=== PATIENT | male | born 1955 | race American Indian/Alaskan Native ===

== ENCOUNTER 2018-01-03 23:07 | Emergency (ER) | payer MEDICAID ==
[2018-01-03 23:27] VITALS: RESP 18
--- NOTE | 2018-01-04 01:13 | ED PDOC ---
HPI: General Adult Time Seen by Provider: 01/03/18 23:47 Chief Complaint (Nursing): Dizziness/Lightheaded History Per: Patient History/Exam Limitations: no limitations Onset/Duration Of Symptoms: Days (months) Additional Complaint(s): Hx of HIV, HTN, HLD, chronic pain in his legs presenting with lower back/pelvis pain x months, states that he gets dizzy when he gets the pain. States he's been going from hospital to hospital because he is homeless. States his doctors at [facility] have worked him up for this problem, states its related to his lack of musculature. Patient denies falls, denies injury, denies chest pain, shortness of breath, nausea, vomiting, diarrhea, or any other acute symptoms. Patient is asking for [facility]. Past Medical History Reviewed: Historical Data, Nursing Documentation Vital Signs: Last Vital Signs Temp Pulse 78 01/03/18 23:23 Resp 18 01/03/18 23:23 BP 138/79 01/03/18 23:23 Pulse Ox 99 01/03/18 23:23 - Medical History PMH: HIV, HTN - Family History Family History: States: Unknown Family Hx - Allergies Allergies/Adverse Reactions: Allergies Allergy/AdvReac Type Severity Reaction Status Date / Time Penicillins Allergy RASH Verified 01/03/18 23:22 Review of Systems ROS Statement: Except As Marked, All Systems Reviewed And Found Negative Musculoskeletal: Positive for: Back Pain, Leg Pain Physical Exam - Reviewed Nursing Documentation Reviewed: Yes Vital Signs Reviewed: Yes - Physical Exam Appears: Positive for: Non-toxic, No Acute Distress. Negative for: Well ( Cachectic, appears older than stated age) Head Exam: Positive for: ATRAUMATIC, NORMAL INSPECTION, NORMOCEPHALIC Skin: Positive for: Normal Color, Warm, DRY Eye Exam: Positive for: EOMI, Normal appearance, PERRL ENT: Positive for: Normal ENT Inspection Neck: Positive for: Normal, Painless ROM Cardiovascular/Chest: Positive for: Regular Rate, Rhythm Respiratory: Positive for: CNT, Normal Breath Sounds Gastrointestinal/Abdominal: Positive for: Normal Exam, Soft Back: Positive for: Normal Inspection Extremity: Positive for: Normal ROM Neurologic/Psych: Positive for: Alert, Oriented - ECG O2 Sat by Pulse Oximetry: 99 Pulse Ox Interpretation: Normal Medical Decision Making Medical Decision Making: Patient arrives for resolved dizziness and chronic back pain, however also asking to be discharged to [facility]. Patient does not have acute medical condition at this time, will d/c. Disposition - Clinical Impression Clinical Impression: Dizzy spells - Disposition Referrals: [facility] [Outside] Disposition: Routine/Home Disposition Time: 01:14 Condition: STABLE Instructions: Dizziness, Nonvertigo, (DC)
[2018-01-04 01:19] VITALS: BP 129/77; PULSE 66; TEMP 97.7; O2SAT 97
== END 2018-01-04 05:45 | disposition home or self-care (01) ==
LOC: H.ER 23:07
DX: R42 Dizziness and giddiness (principal); E78.5 Hyperlipidemia, unspecified; G89.29 Other chronic pain; I10 Essential (primary) hypertension; Z59.0 Homelessness; Z88.0 Allergy status to penicillin

== ENCOUNTER 2018-01-04 06:28 | Emergency (ER) | payer MEDICAID ==
[2018-01-04] MEDS ORDERED: Sodium Chloride 0.9% 1,000 ML IV STA (07:41)
[2018-01-04 07:52] VITALS: RESP 19; O2SAT 98
--- NOTE | 2018-01-04 08:23 | ED PDOC ---
HPI: Trauma/Fall - HPI Time Seen by Provider: 01/04/18 07:10 Chief Complaint (Nursing): Back Pain History Per: Patient (this is a 62 yo male with h/o HIV, hypertension and DM who returns to the ER after being discharge within 1-2 hours prior. Patient c/o that he cannot walk long distance before losing his strength. States that he fell onto parked car landing on his left shoulder. Has pain in the area.) Past Medical History Reviewed: Historical Data, Nursing Documentation, Vital Signs Vital Signs: Last Vital Signs Temp 97.8 F 01/04/18 07:03 Pulse 64 01/04/18 07:03 Resp 19 01/04/18 07:51 BP 113/75 01/04/18 07:51 Pulse Ox 98 01/04/18 08:26 - Medical History PMH: HIV, HTN - Family History Family History: States: Unknown Family Hx - Living Arrangements Living Arrangements: Other (undomiciled) - Allergies Allergies/Adverse Reactions: Allergies Allergy/AdvReac Type Severity Reaction Status Date / Time Penicillins Allergy RASH Verified 01/03/18 23:22 Review of Systems ROS Statement: Except As Marked, All Systems Reviewed And Found Negative Constitutional: Negative for: Fever Gastrointestinal: Negative for: Nausea, Vomiting Neurological: Positive for: Dizziness. Negative for: Weakness, Numbness, Incoordination, Change in Speech, Confusion, Seizures, Altered Mental Status, Headache Physical Exam - Reviewed Nursing Documentation Reviewed: Yes Vital Signs Reviewed: Yes - Physical Exam Appears: Positive for: Well, Non-toxic, No Acute Distress Head Exam: Positive for: ATRAUMATIC, NORMAL INSPECTION, NORMOCEPHALIC Skin: Positive for: Normal Color, Warm, DRY Eye Exam: Positive for: Normal appearance, EOMI, PERRL ENT: Positive for: Normal ENT Inspection Neck: Positive for: Normal Cardiovascular/Chest: Positive for: Regular Rate, Rhythm Respiratory: Positive for: CNT, Normal Breath Sounds Gastrointestinal/Abdominal: Positive for: Normal Exam, Soft Back: Positive for: Normal Inspection Extremity: Positive for: Normal ROM, Tenderness (left AC/clavicle) Neurologic/Psych: Positive for: Alert, Oriented - Laboratory Results Result Diagrams: 01/04/18 08:25 01/04/18 08:25 - ECG O2 Sat by Pulse Oximetry: 98 - Radiology X-Ray: Viewed By Ga X-Ray Interpretation: No Acute Disease Disposition - Clinical Impression Clinical Impression: Generalized weakness - Patient ED Disposition Is Patient to be Admitted: No Doctor Will See Patient In The: Office Counseled Patient/Family Regarding: Diagnosis, Need For Followup - Disposition Referrals: [facility] [Outside] [facility] [Outside] [facility] [Outside] Disposition: Routine/Home Disposition Time: 09:00 Condition: STABLE Instructions: Generalized Weakness (DC) Forms: [facility] (Frisian) - POA Present On Arrival: Falls Or Trauma
[2018-01-04 08:49] LABS: MEAN CELL VOLUME 96.7 fl (80.0-94.0); MEAN PLATELET VOLUME 7.2 fl (7.2-11.7)
[2018-01-04 08:53] LABS: BASO % 0.3 % (0.0-2.0); EOS # 0.1 K/uL (0.0-0.7); EOS % 1.7 % (0.0-4.0); HEMOGLOBIN 11.9 g/dL (12.0-18.0); LYMPH # 1.7 K/uL (1.0-4.3); LYMPH % 26.5 % (20.0-40.0); MEAN CORPUSCULAR HEMOGLOBIN 33.2 pg (27.0-31.0); MEAN CORPUSCULAR HGB CONC 34.4 g/dL (33.0-37.0); MONO # 2.1 K/uL (0.0-0.8); MONO % 31.6 % (0.0-10.0); NEUT # 2.6 K/uL (1.8-7.0); NEUT % 39.9 % (50.0-75.0); NRBC % 1.6 % (0.0-0.0); RBC 3.58 Mil/uL (4.40-5.90); RED CELL DISTRIBUTION WIDTH 16.4 % (11.5-14.5); WHITE BLOOD COUNT 6.6 K/uL (4.8-10.8)
[2018-01-04 08:57] LABS: ALT/SGPT 40 U/L (21-72); AST/SGOT 80 U/L (17-59); BLOOD UREA NITROGEN 26 mg/dl (9-20); CALCIUM 9.5 mg/dL (8.4-10.2); GFR AFRICAN-AMERICAN > 60; GFR NON-AFRICAN AMERICAN > 60
[2018-01-04 08:58] LABS: PLATELET COUNT 191 K/uL (130-400)
[2018-01-04 09:02] LABS: ALB/GLOB RATIO 0.5 (1.0-2.1)
[2018-01-04 09:44] VITALS: BP 126/78; PULSE 78; TEMP 97
--- NOTE | 2018-01-04 10:16 | RAD ---
PROCEDURE: Radiographs of the Left Shoulder HISTORY: blunt injury; fell onto parked car COMPARISON: No prior. FINDINGS: BONES: No acute fracture or destructive bony lesion identified. JOINTS: Position limits evaluation the acromioclavicular joint. No gross dislocation appreciated at the acromioclavicular or glenohumeral joints. SOFT TISSUES: Normal. OTHER FINDINGS: None. IMPRESSION: No acute fracture or dislocation present. If symptoms persist or worsen follow-up CT or MRI recommended.
[2018-01-04 12:48] LABS: BANDS 1 % (0-2); LYMPHOCYTE 40 % (20-50); NEUTROPHIL 40 % (42-75); TOTAL CELLS COUNTED 100
[2018-01-04 12:49] LABS: EOSINOPHIL 1 % (0-7); MONOCYTE 18 % (0-10); PLATELET ESTIMATE NORMAL (NORMAL)
--- NOTE | 2018-01-05 11:23 | CARD ---
APPROVED REPORT EKG Measurement Heart [id number] <Conclusion> Normal sinus rhythm Normal ECG
== END 2018-01-04 10:00 | disposition home or self-care (01) ==
LOC: H.ER 06:28
DX: R53.1 Weakness (principal); E11.9 Type 2 diabetes mellitus without complications; I10 Essential (primary) hypertension; Z88.0 Allergy status to penicillin; B20 Human immunodeficiency virus [HIV] disease; M25.512 Pain in left shoulder; W19.XXXA Unspecified fall, initial encounter
CPT/HCPCS: 73030; 80053; 85025; 93005; 99283; J7030